=== PATIENT | female | born 1990 | race African-American/Black ===

== ENCOUNTER → 2016-10-20 | Outpatient (CLI) | payer OTHER ==
[~2016-10-20] MED LIST: AMOXICILLIN500 MG PO; ENDOCET 5-3251 EACH PO; GLYBURIDE2.5 MG PO; PRENAPLUS TABL1 EACH PO
== END | disposition home or self-care (01) ==
LOC: CDC 12:37
DX: O24.410 Gestational diabetes mellitus in pregnancy, diet controlled (principal); O16.9 Unspecified maternal hypertension, unspecified trimester
CPT/HCPCS: 93000

== ENCOUNTER 2016-11-10 20:07 | Inpatient (IN) | payer OTHER ==
[~2016-11-10] VITALS: Ht 152.4 cm; Wt 131.0 kg
[2016-11-10 20:28] VITALS: BP 152/92
[2016-11-10] MEDS ORDERED: PRENATAL TABLE1 EAC3 PO (21:22)
[2016-11-10] MEDS ORDERED: MICRONASE5 MG PO (21:22)
[2016-11-10] MEDS ORDERED: ASPIR 8181 M1 PO (21:22)
[2016-11-10] MEDS ORDERED: METHYCLOTHIAZIDE5 MG PO (21:26)
[2016-11-10 21:28] LABS: EOSINOPHIL (%) 0.4 % (0-5); EOSINOPHIL COUNT 0.1 K/uL (0-0.3); HEMATOCRIT 36.1 % (36.0-46.0); IMMATURE GRANULOCYTE (%) 0.7 % (0.0-0.7); IMMATURE GRANULOCYTE COUNT 0.1 K/uL; INSTRUMENT ABS NEUTROPHIL CT 9.1 K/uL; MCH 23.3 PG (29.0-34.0); MCHC 33.2 G/DL (30.0-36.0); MCV 70.1 FL (83-99); MONOCYTE COUNT 0.9 K/uL (0-0.8); NEUTROPHIL (%) 68.9 % (45-76); NEUTROPHIL COUNT 9.1 K/uL (1.8-6.4); PLATELET COUNT 332 K/uL (156-360); RBC DIS.WIDTH-CV 16.5 % (11.8-14.6); RBC DIS.WIDTH-SD 41.4 % (39-53); RED BLOOD COUNT 5.15 M/uL (3.80-5.20); WHITE BLOOD COUNT 13.2 K/uL (4.1-10.2)
[2016-11-10 21:34] LABS: POINT-OF-CARE METER ID UU13113692
[2016-11-10 21:46] VITALS: BP 134/85
[2016-11-10 23:49] LABS: POINT-OF-CARE METER ID UU13113675
[2016-11-11] VITALS (9 sets, daily range): BP systolic 110–136; BP diastolic 66–83
[2016-11-11 06:02] LABS: POINT-OF-CARE METER ID UU13113801
[2016-11-11 11:47] LABS: POINT-OF-CARE METER ID UU13113801; POINT-OF-CARE USER ID 608261309
[2016-11-11 12:53] LABS: EOSINOPHIL (%) 0.2 % (0-5); HEMATOCRIT 31.6 % (36.0-46.0); IMMATURE GRANULOCYTE (%) 0.7 % (0.0-0.7); IMMATURE GRANULOCYTE COUNT 0.1 K/uL; INSTRUMENT ABS NEUTROPHIL CT 12.5 K/uL; LYMPHOCYTE COUNT 3.1 K/uL (1.0-2.8); MCH 23.3 PG (29.0-34.0); MCHC 33.2 G/DL (30.0-36.0); MCV 70.2 FL (83-99); MEAN PLAT.VOLUME 10.1 uM^3 (9.5-12.4); MONOCYTE (%) 5.8 % (3-12); NEUTROPHIL (%) 74.6 % (45-76); NEUTROPHIL COUNT 12.5 K/uL (1.8-6.4); PLATELET COUNT 289 K/uL (156-360); RBC DIS.WIDTH-CV 16.4 % (11.8-14.6); RBC DIS.WIDTH-SD 41.7 % (39-53); WHITE BLOOD COUNT 16.8 K/uL (4.1-10.2)
[2016-11-11 13:03] LABS: ALKALINE PHOSPHATASE 175 IU/L (3-129); ANION GAP 9 MEQ/L (2-14); CHLORIDE 107 MEQ/L (99-109); GFR ESTIMATE (CALCULATED) > 59 mL/min/; GLUCOSE 145 mg/dL (70-99); POTASSIUM 4.2 MEQ/L (3.7-5.4); SAMPLE HEMOLYSIS CHECK 0; SAMPLE ICTERIC CHECK 0; SAMPLE LIPEMIA CHECK 0; SODIUM 136 MEQ/L (136-147); TOTAL BILIRUBIN 0.3 MG/DL (0.0-1.0); UREA NITROGEN (BUN) 9 mg/dL (9-23)
[2016-11-11 18:24] LABS: POINT-OF-CARE METER ID UU13113801; POINT-OF-CARE USER ID 608261309
[2016-11-12 00:13] LABS: POINT-OF-CARE METER ID UU14188576
[2016-11-12 01:26] VITALS: BP 102/58
[2016-11-12 05:52] LABS: POINT-OF-CARE METER ID UU13113692
[2016-11-12 07:30] VITALS: BP 137/75
[2016-11-12] MEDS ORDERED: IBUPROFEN800 MG PO (09:19)
[2016-11-12] MEDS ORDERED: ENDOCET 5-3251 EACH PO (09:19)
[2016-11-12 11:02] VITALS: BP 128/86
[2016-11-12 13:44] LABS: POINT-OF-CARE METER ID UU13113801
== END 2016-11-12 16:25 | disposition home or self-care (01) | DRG 765 ==
LOC: LDRP-OP → 2WEST 20:10 → LDRP-OP 12-27 20:42
PROVIDERS: Obstetrics & Gynecology
DX: O34.211 Maternal care for low transverse scar from previous cesarean delivery (principal); Z3A.37 37 weeks gestation of pregnancy; Z37.0 Single live birth; O24.425 Gestational diabetes mellitus in childbirth, controlled by oral hypoglycemic drugs; O10.92 Unspecified pre-existing hypertension complicating childbirth; O99.844 Bariatric surgery status complicating childbirth; O99.214 Obesity complicating childbirth; E66.01 Morbid (severe) obesity due to excess calories; Z68.42 Body mass index [BMI] 45.0-49.9, adult; Z30.2 Encounter for sterilization
CPT/HCPCS: 80053; 82948; 85025; 86900; 86901; 88302; 88307; J1100; J1815; J2250; J2274; J2405; J7120

== ENCOUNTER 2016-12-29 13:46 | Emergency (ER) | payer OTHER ==
[~2016-12-29] VITALS: Ht 152.4 cm; Wt 124.5 kg
[~2016-12-29 13:46] MED LIST changes: +ASPIR 8181 M1 PO; +IBUPROFEN800 MG PO; +METHYCLOTHIAZIDE5 MG PO; +MICRONASE5 MG PO; +PRENATAL TABLE1 EAC3 PO
[2016-12-29 15:18] LABS: CHLORIDE 109 mEq/L (99-109); POTASSIUM 3.7 mEq/L (3.7-5.4); SODIUM 143 mEq/L (136-147)
[2016-12-29 15:20] LABS: GLUCOSE 98 mg/dL (70-99)
[2016-12-29 15:22] LABS: ANION GAP 9 MEQ/L (2-14)
[2016-12-29 15:24] LABS: GFR ESTIMATE (CALCULATED) > 59 mL/min/
[2016-12-29 15:25] LABS: UREA NITROGEN (BUN) 8 mg/dL (9-23)
[2016-12-29 15:27] LABS: HEMATOCRIT 35.6 % (36.0-46.0); MCH 22.9 PG (29.0-34.0); MCHC 32.6 G/DL (30.0-36.0); MCV 70.2 FL (83-99); MEAN PLAT.VOLUME 9.5 uM^3 (9.5-12.4); PLATELET COUNT 304 K/uL (156-360); RBC DIS.WIDTH-CV 15.5 % (11.8-14.6); RBC DIS.WIDTH-SD 38.7 % (39-53); RED BLOOD COUNT 5.07 M/uL (3.80-5.20); WHITE BLOOD COUNT 6.9 K/uL (4.1-10.2)
[2016-12-29 15:29] LABS: TROP-I INTERPRETATION NEGATIVE; TROPONIN-I < 0.01 ng/mL (0.0-0.30)
[2016-12-29] MEDS ORDERED: OMEPRAZOLE40 M1 PO (16:02)
[2016-12-29] MEDS ORDERED: HYDROCHLOROTHIA25 MG PO (16:02)
[2016-12-29] MEDS ORDERED: LISINOPRIL5 MG PO (16:05)
[2016-12-29 16:08] LABS: TOTAL BILIRUBIN 0.3 mg/dL (0.0-1.0)
[2016-12-29 16:09] LABS: ALKALINE PHOSPHATASE 102 IU/L (3-129)
[2016-12-29 16:11] LABS: DIRECT BILIRUBIN 0.2 mg/dL (0.0-0.3)
[2016-12-29 16:12] LABS: LIPASE 54 U/L (1.0-51.0)
[2016-12-29 16:20] VITALS: BP 151/106
== END 2016-12-29 16:23 | disposition home or self-care (01) ==
LOC: EME 13:46 → RME 13:46
DX: O10.93 Unspecified pre-existing hypertension complicating the puerperium (principal); K21.9 Gastro-esophageal reflux disease without esophagitis; M54.9 Dorsalgia, unspecified; R51 Headache; R42 Dizziness and giddiness; H53.8 Other visual disturbances; Z82.49 Family history of ischemic heart disease and other diseases of the circulatory system
CPT/HCPCS: 71020; 80048; 80076; 83690; 84484; 85027; 93005; 99281; 99284

== ENCOUNTER 2017-01-18 14:11 | Emergency (ER) | payer OTHER ==
[~2017-01-18] VITALS: Ht 152.4 cm; Wt 116.5 kg
[~2017-01-18 14:11] MED LIST changes: +HYDROCHLOROTHIA25 MG PO; +LISINOPRIL5 MG PO; +OMEPRAZOLE40 M1 PO
[2017-01-18] MEDS ORDERED: HYDROCHLOROTHIA25 MG PO (14:37)
[2017-01-18 15:16] LABS: HEMATOCRIT 41.6 % (36.0-46.0); MCH 23.4 PG (29.0-34.0); MCHC 33.4 G/DL (30.0-36.0); MCV 69.9 FL (83-99); MEAN PLAT.VOLUME 10.3 uM^3 (9.5-12.4); PLATELET COUNT 251 K/uL (156-360); RBC DIS.WIDTH-CV 14.8 % (11.8-14.6); RBC DIS.WIDTH-SD 36.4 % (39-53); RED BLOOD COUNT 5.95 M/uL (3.80-5.20); WHITE BLOOD COUNT 6.8 K/uL (4.1-10.2)
[2017-01-18 15:18] LABS: CHLORIDE 103 mEq/L (99-109); POTASSIUM 3.6 mEq/L (3.7-5.4); SODIUM 137 mEq/L (136-147)
[2017-01-18 15:20] LABS: GLUCOSE 205 mg/dL (70-99)
[2017-01-18 15:21] LABS: ANION GAP 14 MEQ/L (2-14)
[2017-01-18 15:22] LABS: TOTAL BILIRUBIN 0.6 mg/dL (0.0-1.0)
[2017-01-18 15:23] LABS: ALKALINE PHOSPHATASE 117 IU/L (3-129)
[2017-01-18 15:24] LABS: GFR ESTIMATE (CALCULATED) > 59 mL/min/
[2017-01-18 15:25] LABS: UREA NITROGEN (BUN) 13 mg/dL (9-23)
[2017-01-18 15:33] LABS: QUANTITATIVE HCG < 4.0 MIU/ML
[2017-01-18 15:45] LABS: ADD MIUA? YES; BILIRUBIN NEGATIVE; BLOOD NEGATIVE; COLOR YELLOW ((YELLOW)); GLUCOSE (STRIP) NEGATIVE; KETONES 5; LEUKOCYTES NEGATIVE; NITRITE NEGATIVE; PROTEIN (STRIP) 100; SPECIFIC GRAVITY 1.024 (1.000-1.030); UROBILINOGEN 0.2 MG/DL (0.2-1.0)
[2017-01-18 15:54] LABS: BACTERIA RARE /HPF; EPITHELIAL CELLS 1+ /HPF; MUCUS 1+ /LPF; RED BLOOD CELLS 0-5 /HPF (0-5); UCUL ADDED? NO; WHITE BLOOD CELLS 0-5 /HPF (0-5)
[2017-01-18] MEDS ORDERED: MOTRIN600 MG PO (17:36)
[2017-01-18] MEDS ORDERED: BENTYL20 MG PO (17:36)
[2017-01-18] MEDS ORDERED: ZOFRAN ODT4 MG PO (17:44)
[2017-01-18 18:09] VITALS: BP 116/61
== END 2017-01-18 18:10 | disposition home or self-care (01) ==
LOC: EXP 14:11 → EME 14:11 → EXP 18:10
DX: R10.11 Right upper quadrant pain (principal); R50.9 Fever, unspecified; R19.7 Diarrhea, unspecified; I10 Essential (primary) hypertension
CPT/HCPCS: 74177; 80053; 81003; 84702; 85027; 99281; 99285; J1885; J7030

== ENCOUNTER 2018-01-28 09:09 | Emergency (ER) | payer OTHER ==
[~2018-01-28] VITALS: Ht 154.9 cm; Wt 106.4 kg
[~2018-01-28 09:09] MED LIST changes: +BENTYL20 MG PO; +MOTRIN600 MG PO; +ZOFRAN ODT4 MG PO
[2018-01-28 10:01] LABS: BASOPHIL (%) 0.7 % (0-1); EOSINOPHIL COUNT 0.1 K/uL (0-0.3); HEMATOCRIT 33.1 % (36.0-46.0); HEMOGLOBIN 11.7 G/DL (11.9-15.5); IMMATURE GRANULOCYTE (%) 0.2 % (0.0-0.7); LYMPHOCYTE (%) 34.1 % (15-42); MCH 25.7 PG (29.0-34.0); MCHC 35.3 G/DL (30.0-36.0); MCV 72.7 FL (83-99); MONOCYTE (%) 6.1 % (3-12); MONOCYTE COUNT 0.4 K/uL (0-0.8); NEUTROPHIL (%) 57.9 % (45-76); NEUTROPHIL COUNT 3.3 K/uL (1.8-6.4); PLATELET COUNT 291 K/uL (156-360); RBC DIS.WIDTH-CV 14.6 % (11.8-14.6); RBC DIS.WIDTH-SD 38.5 % (39-53); RED BLOOD COUNT 4.55 M/uL (3.80-5.20); WHITE BLOOD COUNT 5.7 K/uL (4.1-10.2)
[2018-01-28 10:03] LABS: CHLORIDE 111 mEq/L (99-109); SODIUM 145 mEq/L (136-147)
[2018-01-28 10:05] LABS: GLUCOSE 93 mg/dL (70-99)
[2018-01-28 10:09] LABS: CREATININE 0.7 mg/dL (0.6-1.3); GFR ESTIMATE (CALCULATED) > 59 mL/min/
[2018-01-28 10:10] LABS: UREA NITROGEN (BUN) 8 mg/dL (9-23)
[2018-01-28 10:15] LABS: TROP-I INTERPRETATION NEGATIVE; TROPONIN-I < 0.01 ng/mL (0.0-0.30)
[2018-01-28] MEDS ORDERED: MOTRIN800 MG PO (10:43)
[2018-01-28 10:55] VITALS: BP 118/90
== END 2018-01-28 10:55 | disposition home or self-care (01) ==
LOC: EME 09:09
PROVIDERS: Emergency Medicine
DX: R07.89 Other chest pain (principal); I10 Essential (primary) hypertension
CPT/HCPCS: 71045; 80048; 84484; 85025; 93005